=== PATIENT | male | born 1955 | race Caucasian/White ===

== ENCOUNTER 2022-01-01 06:56 | Day surgery (SDC) | payer MEDICARE, OTHER ==
[2021-12-27 09:49] VITALS: BMI 24.8
[2022-01-01 08:13] VITALS: BP 132/80; TEMP 97.8
[2022-01-01] MEDS ORDERED: Iopamidol-M 300 61% 15 ML VIAL ONE (11:46)
== END 2022-01-01 09:20 | disposition home or self-care (01) ==
LOC: RAD 06:56
PROVIDERS: ATTEND Neurological Surgery
PROC: B02B1ZZ Computerized Tomography (CT Scan) of Spinal Cord using Low Osmolar Contrast (ICD-10-PCS; principal; 2022-01-01)
DX: M51.16 Intervertebral disc disorders with radiculopathy, lumbar region (principal); M48.062 Spinal stenosis, lumbar region with neurogenic claudication; M50.10 Cervical disc disorder with radiculopathy, unspecified cervical region; M48.02 Spinal stenosis, cervical region
CPT/HCPCS: 62305; 72100; 72126; 72129; 72132; Q9967

== ENCOUNTER 2022-02-07 12:01 | Outpatient (CLI) | payer MEDICARE, OTHER ==
[~2022-02-07 12:01] MED LIST: Iopamidol-370 76% 500 ML 1 ML ONE
== END 2022-02-07 12:02 | disposition home or self-care (01) ==
LOC: BICCT 12:01
PROVIDERS: ATTEND Neurological Surgery
DX: M54.16 Radiculopathy, lumbar region (principal); I77.1 Stricture of artery
CPT/HCPCS: 75635; 82565; Q9967

== ENCOUNTER 2022-05-31 13:26 | Outpatient (CLI) | payer MEDICARE, OTHER | END 2022-05-31 13:27 | disposition home or self-care (01) | LOC: TBSIIMAG 13:26 | PROVIDERS: ATTEND Neurological Surgery | DX: M54.50 Low back pain, unspecified (principal); M47.816 Spondylosis without myelopathy or radiculopathy, lumbar region; M51.36 Other intervertebral disc degeneration, lumbar region; Z98.890 Other specified postprocedural states | CPT/HCPCS: 72100 ==

== ENCOUNTER 2022-08-30 09:02 | Outpatient (CLI) | payer MEDICARE, OTHER | END 2022-08-30 09:03 | disposition home or self-care (01) | LOC: TBSIIMAG 09:02 | PROVIDERS: ATTEND Neurological Surgery | DX: M54.16 Radiculopathy, lumbar region (principal); M47.816 Spondylosis without myelopathy or radiculopathy, lumbar region; Z98.890 Other specified postprocedural states | CPT/HCPCS: 72100 ==